=== PATIENT | male | born 1990 | race Caucasian/White ===

== ENCOUNTER 2016-09-09 21:24 | Outpatient (CLI) | payer BC ==
[~2016-09-09 21:24] MED LIST: CPR500T PO; GENT3.5O18 OU; METR500T PO
== END 2016-09-10 06:35 | disposition home or self-care (01) ==
LOC: SLEEP 21:24
PROVIDERS: ATTEND Family Medicine
DX: G47.33 Obstructive sleep apnea (adult) (pediatric) (principal)
CPT/HCPCS: 95810

== ENCOUNTER 2018-05-13 13:20 | Emergency (ER) | payer BC ==
[~2018-05-13] VITALS: Ht 182.9 cm; Wt 104.3 kg
--- NOTE | 2018-05-13 13:43 | ED Headache ---
General Chief Complaint: Head/Cervical Problems Stated Complaint: HEADACHE/CONGESTION Nursing Triage Note: PT REPORTS CONGESTION LAST FEW DAYS. PT STATES HIS REASON FOR ER VISIT IS THROBBING HEADACHE BEHIND LEFT EYE, RATES PAIN 8/10. Nursing Sepsis Screen: No Definite Risk Source: patient Exam Limitations: no limitations History of Present Illness Date Seen by Provider: May 13, 2018 Time Seen by Provider: 13:40 Initial Comments 28-year-old male who presents to the emergency room with complaints of headache and congestion that started a few days ago. He reports that his pain and has had became worse last night and it localizes behind his left eye. He reports that he's had headaches in the past that he believes that her sinus headaches. He is currently on Flonase, allergy medication, and has been taking ibuprofen and Tylenol without relief. He reports that his symptoms of congestion are improved but headache has not. Timing/Duration: 24 hours Severity/Quality: pressure Location: frontal Prior Headaches/Recent Trauma: occasional headaches Associated Symptoms: nasal congestion; No stiff neck; vision changes ( photophobia) Allergies and Home Medications Allergies Coded Allergies: No Known Drug Allergies (Unverified , 06/30/11) Home Medications Ciprofloxacin 500 Mg Tablet, 1 TAB PO BID Prescribed by: OLGA DALTON on 07/01/11 0302 Gentamicin Sulfate 3.5 Gm Oint..gm., 0 OU Q4HR APPLY THIN STRIP Prescribed by: GONSALO JULIAN on 12/04/11 0034 Metronidazole 500 Mg Tab, 1 EACH PO BID Prescribed by: OLGA DALTON on 07/01/11 0302 Ondansetron HCl 4 Mg Tab, 4 MG PO Q4H Prescribed by: MARYJANE VALENTINE on 05/13/18 1443 Patient Home Medication List Home Medication List Reviewed: Yes Review of Systems Review of Systems Constitutional: no symptoms reported, see HPI Eyes: See HPI, Photophobia Ears, Nose, Mouth, Throat: see HPI (nasal congestion) Psychiatric/Neurological: See HPI, Headache All Other Systems Reviewed Negative Unless Noted: Yes Past Flinkyz-Wllfae-Hjfllb Hx Past Med/Social Hx: Reviewed Nursing Past Med/Soc Hx Patient Social History Alcohol Use: Denies Use Recreational Drug Use: No Smoking Status: Never a Smoker Recent Foreign Travel: No Contact w/Someone Who Travel: No Recent Infectious Disease Expo: No Recent Hopitalizations: No Physical Abuse: No Sexual Abuse: No Mistreated: No Seasonal Allergies Seasonal Allergies: No Past Medical History Surgeries: Yes Orthopedic Respiratory: No Cardiac: No Neurological: No Genitourinary: No Gastrointestinal: No Musculoskeletal: No Endocrine: No HEENT: No Cancer: No Psychosocial: No Integumentary: No Blood Disorders: No Family Medical History Reviewed Nursing Family Hx Physical Exam Vital Signs Vital Signs - First Documented 05/13/18 13:34 Temp 96.0 Pulse 81 Resp 16 B/P (MAP) 127/109 (115) Pulse Ox 97 Capillary Refill : Less Than 3 Seconds Height, Weight, BMI Height: 6'0" Weight: 230lbs. 0.0oz. [id number]; 29.8 BMI Method:Stated General Appearance: WD/WN, no apparent distress HEENT: PERRL/EOMI, normal ENT inspection, TMs normal, pharynx normal Neck: non-tender, full range of motion, supple, normal inspection Cardiovascular: normal peripheral pulses, regular rate, rhythm, no edema, no gallop, no JVD, no murmur Respiratory: chest non-tender, lungs clear, normal breath sounds, no respiratory distress, no accessory muscle use Psychiatric: alert, oriented x 3 Crainal Nerves: normal hearing, normal speech Coordination/Gait: normal finger to nose Skin: normal color, warm/dry Progress/Results/Core Measures Results/Orders My Orders Orders - MARYJANE VALENTINE Ketorolac Injection (Toradol Injection) (05/13/18 13:45) Diphenhydramine Injection (Benadryl Inje (05/13/18 13:45) Prochlorperazine Injection (Compazine In (05/13/18 13:45) Im/Sub-Q Injection Non-Ab Ed (05/13/18 ) Medications Given in ED Vital Signs/I&O 05/13/18 05/13/18 13:34 14:45 Temp 96.0 96.0 Pulse 81 81 Resp 16 16 B/P (MAP) 127/109 (115) 127/109 (115) Pulse Ox 97 97 Blood Pressure Mean: 115 Progress Progress Note : Time: 13:50 Progress Note I have seen and evaluated the patient. He is feeling better after medication administration. He agrees with plan of care, plans for discharge, return precautions were given. Departure Impression Primary Impression: Headache Disposition: 01 HOME, SELF-CARE Condition: Stable/Unchanged Departure-Patient Inst. Decision time for Depature: 13:55 Referrals: GAGAN IQBAL DO (PCP/Family) Primary Care Physician Patient Instructions: Migraine Headache (DC) Add. Discharge Instructions: You may continue to use your current medications as you have been using for your sinus congestion. You may use ibuprofen and Tylenol as directed by the bottle for pain relief for additional headaches. Take Zofran as directed for nausea. He may continue to use the Benadryl as needed for additional migraine relief as directed by the bottle. Follow-up with her primary care provider within 1 week for recheck. Return back to the emergency room for any worsening symptoms or concerns as needed. All discharge instructions reviewed with patient and/or family. Voiced understanding. Scripts Ondansetron HCl (Zofran) 4 Mg Tab 4 MG PO Q4H, #14 TAB Prov: MARYJANE VALENTINE 05/13/18 MARYJANE VALENTINE May 13, 2018 13:43
[2018-05-13] MEDS ORDERED: diphenhydrAMINE 50 MG/ML INJ (BENADRYL) IM ONE (13:45)
[2018-05-13] MEDS ORDERED: PROCHLORPERAZINE 10 MG/2ML INJ (COMPAZINE) IM ONE (13:45)
[2018-05-13] MEDS ORDERED: KETOROLAC 60 MG/2 ML VIAL IM ONE (13:45)
[2018-05-13] MEDS ORDERED: ONDN4T PO (14:43)
[2018-05-13 14:45] VITALS: BP 127/109
== END 2018-05-13 14:46 | disposition home or self-care (01) ==
LOC: EDUNIT# 13:20 → ER 13:21
DX: R51 Headache (principal)
CPT/HCPCS: 99284